=== PATIENT | male | born 1985 | race Caucasian/White ===

== ENCOUNTER 2020-09-19 17:19 | Inpatient (IN) | payer OTHER ==
[2020-09-19] MEDS ORDERED: LORazepam 2 MG/ML INJ IV PRN (17:38)
[2020-09-19] MEDS ORDERED: THIAMINE 100 MG/ML 2 ML VIAL IM STA (17:38)
--- NOTE | 2020-09-19 17:40 | ED ---
General Adult HPI - General Chief complaint: Alcohol Stated complaint: Vomiting, GI Bleed Time Seen by Provider: 09/19/20 17:27 Source: patient, EMS Mode of arrival: EMS Limitations: no limitations - History of Present Illness Initial comments: Dictation was produced using [employer]ren[employer] dictation software. please excuse any grammatical, word or spelling errors. This patient was cared for during a federal and state declared state of emergency secondary to Covid 19 Chief Complaint: 35-year-old male presents with hematemesis and EtOH intoxic ation History of Present Illness: 35-year-old male he called [facility] told him that he wanted to be admitted for alcohol withdrawal rehabilitation. He also mentioned to [facility] staff that he has sometimes episodic hematemesis. Patient states he had a lot of alcohol to drink today. States he feels drunk. He has no other complaints at this time. Patient is limited historian secondary to alcohol intoxication. The ROS documented in this emergency department record has been reviewed and confirmed by me. Those systems with pertinent positive or negative responses have been documented in the HPI. All other systems are other negative and/or noncontributory. PHYSICAL EXAM: General Impression: Alert and oriented x3, not in acute distress, inebriated HEENT: Normocephalic atraumatic, extra-ocular movements intact, pupils equal and reactive to light bilaterally, mucous membranes moist. Cardiovascular: Heart regular rate and rhythm Chest: Able to complete full sentences, no retractions, no tachypnea Abdomen: abdomen soft, non-tender, non-distended, no organomegaly Musculoskeletal: Pulses present and equal in all extremities, no peripheral edema Motor: no focal deficits noted Neurological: CN II-XII grossly intact, no focal motor or sensory deficits noted Skin: Intact with no visualized rashes Psych: Normal affect and mood ED course: 35-year-old male presents with episodic hematemesis and EtOH intoxication. He is interested in alcohol detoxification. Drinks half a gallon of whiskey a day. Vital signs upon arrival shows heart rate of 109, worse vital signs within acceptable limits. Laboratory evaluation obtained. CBC unremarkable. Metabolic panel shows no acute processes. Elevated liver enzymes secondary to mild alcoholic hepatitis. Serum alcohol is 298. Case was discussed with Saira Mas who is willing to accept patients care on behalf of [facility] hospitalist group. Patient will be admitted for acute EtOH intoxication with high likelihood of EtOH withdrawal. Patient is agreeable with disposition plan. As notified me while patient was in the emergency room that he did report suicidal ideation. Does not have a specific plan. Psychiatry be consulted. EKG interpretation: Ventricular rate 103, sinus tachycardia, AK interval 140, QRS 80, QTC 427. No AK prolongation, no QTC prolongation, no ST or T-wave changes noted. Overall, this EKG is unremarkable - Related Data Allergies Allergy/AdvReac Type Severity Reaction Status Date / Time No Known Allergies Allergy Verified 09/19/20 17:36 Review of Systems ROS Statement: Those systems with pertinent positive or pertinent negative responses have been documented in the HPI. ROS Other: All systems not noted in ROS Statement are negative. Past Medical History Past Medical History: No Reported History History of Any Multi-Drug Resistant Organisms: None Reported Past Surgical History: No Surgical Hx Reported Past Psychological History: No Psychological Hx Reported Smoking Status: Current every day smoker Past Alcohol Use History: Abuse, Daily, Heavy Past Drug Use History: Marijuana General Exam Limitations: no limitations Course Vital Signs 09/19/20 17:32 Temperature 98.1 F Pulse Rate 109 H Respiratory 18 Rate Blood Pressure 163/90 O2 Sat by Pulse 97 Oximetry Medical Decision Making - Lab Data Result diagrams: 09/19/20 18:08 09/19/20 18:08 Lab Results 09/19/20 09/19/20 Range/Units 18:08 18:08 WBC 5.2 (3.8-10.6) k/uL RBC 5.23 (4.30-5.90) m/uL Hgb 16.8 (13.0-17.5) gm/dL Hct 49.5 (39.0-53.0) % MCV 94.7 (80.0-100.0) fL MCH 32.2 (25.0-35.0) pg MCHC 34.0 (31.0-37.0) g/dL RDW 16.5 H (11.5-15.5) % Plt Count 209 (150-450) k/uL Neutrophils % 48 % Lymphocytes % 38 % Monocytes % 8 % Eosinophils % 2 % Basophils % 2 % Neutrophils # 2.5 (1.3-7.7) k/uL Lymphocytes # 2.0 (1.0-4.8) k/uL Monocytes # 0.4 (0-1.0) k/uL Eosinophils # 0.1 (0-0.7) k/uL Basophils # 0.1 (0-0.2) k/uL Anisocytosis Slight Sodium 144 (137-145) mmol/L Potassium 4.1 (3.5-5.1) mmol/L Chloride 108 H (98-107) mmol/L Carbon Dioxide 28 (22-30) mmol/L Anion Gap 8 mmol/L BUN 6 L (9-20) mg/dL Creatinine 0.77 (0.66-1.25) mg/dL Est GFR (CKD-EPI)AfAm >90 (>60 ml/min/1.73 sqM) Est GFR (CKD-EPI)NonAf >90 (>60 ml/min/1.73 sqM) Glucose 105 H (74-99) mg/dL Calcium 8.6 (8.4-10.2) mg/dL Magnesium 2.0 (1.6-2.3) mg/dL Total Bilirubin 0.6 (0.2-1.3) mg/dL AST 199 H (17-59) U/L ALT 193 H (4-49) U/L Alkaline Phosphatase 105 (38-126) U/L Total Protein 7.4 (6.3-8.2) g/dL Albumin 4.5 (3.5-5.0) g/dL Serum Alcohol 298 H* mg/dL Disposition Clinical Impression: Alcohol intoxication Disposition: ADMITTED IP TO THIS [facility] Condition: Fair Referrals: None,Stated [Primary Care Provider] - 1-2 days Decision Time: 18:38
[2020-09-19] MEDS ORDERED: NALOXONE 0.4 MG/ML 1 ML VIAL IVP STA ×2 (17:45→19:21)
[2020-09-19] MEDS ORDERED: SODIUM CHLORIDE 0.9% 1,000 ML IV ONE (18:16)
[2020-09-19 18:18] LABS: Anisocytosis Slight; Basophils # (A) 0.1 k/uL (0-0.2); Basophils % (A) 2 %; Eosinophils # (A) 0.1 k/uL (0-0.7); Eosinophils % (A) 2 %; HCT 49.5 % (39.0-53.0); HGB 16.8 gm/dL (13.0-17.5); Lymphocytes % (A) 38 %; MCH 32.2 pg (25.0-35.0); MCV 94.7 fL (80.0-100.0); Mean Platelet Volume 6.5; Monocytes # (A) 0.4 k/uL (0-1.0); Monocytes % (A) 8 %; Neutrophils # (A) 2.5 k/uL (1.3-7.7); Neutrophils % (A) 48 %; Platelet Count 209 k/uL (150-450); RBC 5.23 m/uL (4.30-5.90); RDW 16.5 % (11.5-15.5); WBC 5.2 k/uL (3.8-10.6)
[2020-09-19] MEDS: LORazepam 2 MG/ML INJ IV PRN (18:23)
[2020-09-19 18:28] LABS: ALT 193 U/L (4-49); AST 199 U/L (17-59); African American GFR (CKD) >90 (>60 ml/min/1.73 sqM); Albumin 4.5 g/dL (3.5-5.0); Alkaline Phosphatase 105 U/L (38-126); Anion Gap 8 mmol/L; Blood Urea Nitrogen 6 mg/dL (9-20); Calcium 8.6 mg/dL (8.4-10.2); Carbon Dioxide 28 mmol/L (22-30); Chloride 108 mmol/L (98-107); Glucose 105 mg/dL (74-99); Non-African American GFR(CKD) >90 (>60 ml/min/1.73 sqM); Potassium 4.1 mmol/L (3.5-5.1); Sodium 144 mmol/L (137-145); Total Bilirubin 0.6 mg/dL (0.2-1.3); Total Protein 7.4 g/dL (6.3-8.2)
[2020-09-19 18:32] LABS: Alcohol 298 mg/dL
[2020-09-19] MEDS ORDERED: NALOXONE 0.4 MG/ML 1 ML VIAL IV PRN (18:35)
[2020-09-19] MEDS ORDERED: NALOXONE 0.4 MG/ML 10 ML VIAL IVP STA ×2 (19:06→19:23)
[2020-09-19 19:11] LABS: Glucose,Whole Blood 92 mg/dL (75-99)
[2020-09-19] MEDS: NALOXONE (MDV) 2 MG in SODIUM CHLORIDE 0.9% 250 ML IV SCH ×2 (20:05→22:43)
[2020-09-19 20:45] LABS: Glucose,Whole Blood 92 mg/dL (75-99)
[2020-09-19] MEDS ORDERED: TEMAZEPAM 15 MG CAP PO PRN (21:01)
[2020-09-19] MEDS ORDERED: HYDROcodone/APAP 5-325MG 1 EACH TAB PO PRN (21:01)
[2020-09-19] MEDS: SODIUM CHLORIDE 0.9% 1,000 ML with MVI, ADULT NO.4 WITH VIT K 10 ML, THIAMINE 100 MG, F... IV SCH ×4 (22:46)
--- NOTE | 2020-09-19 23:34 | HP ---
HISTORY AND PHYSICAL DATE OF SERVICE: 09/19/2020 CHIEF COMPLAINTS: Change in mental status, vomiting, GI bleed. HISTORY OF PRESENT ILLNESS: This 35-year-old gentleman with a past medical history of no significant medical issues except smoking, alcohol abuse and THC, being followed by no primary physician in the outpatient setting, was apparently taken to [facility], referred from [facility], because apparently the patient called for alcohol withdrawal rehabilitation because of episodic hematemesis. The patient was directed to [facility] for further evaluation. The patient was initially confused; the patient had a lot of alcohol to drink today, but in the emergency room the patient had more deterioration and change in mental status. Subsequently Narcan infusion was given and the patient was admitted for further evaluation and treatment. Serum alcohol was found to be 298. AST and ALT were also elevated, indicating alcoholic hepatitis. Patient was admitted to ICU Dr. Sim on consult. The patient is currently mumbling, unable to give a coherent history. Most of the history is taken from my discussion with staff and discussion with the ER physician and review of the chart at this time. PAST MEDICAL HISTORY: No significant cardiovascular or respiratory illness. Otherwise, extensive history of substance abuse, as mentioned earlier. MEDICATIONS PRIOR TO ADMISSION: None. ALLERGIES: NONE. Family history, social history, review of systems could not be taken because of the above-mentioned mental status. PHYSICAL EXAMINATION: Pulse is 112, blood pressure 134/85, respiration 14, temperature 98.1, pulse ox 98% on 2 L. HEENT: Conjunctivae normal. Oral mucosa moist. NECK: No jugular venous distention. No carotid bruit. No lymph node enlargement. CARDIOVASCULAR SYSTEM: S1, S2 muffled. RESPIRATORY SYSTEM: Breath sounds diminished at the bases. No rhonchi. No crackles. ABDOMEN: Soft, non-tender. No mass palpable. LEGS: No edema. No swelling. NERVOUS SYSTEM: Higher functions as mentioned earlier. Moves all 4 limbs. No focal motor or sensory deficit. LYMPHATICS: No lymph node palpable in neck, axillae or groin. SKIN: No ulcer, rash, bleeding. JOINTS: No active deforming arthropathy. LABS: Labs at this time show WBC 5.2, hemoglobin 16.8, sodium 140, potassium 4.1. Glucose 105. AST is 119, ALT is 193. Other labs are noted. ASSESSMENT: 1. Change in mental status, acute metabolic encephalopathy, possibly alcohol/drug- induced. 2. Acute alcoholic hepatitis. 3. History of polysubstance abuse. 4. History of nicotine dependence. 5. History of tetrahydrocannabinol. 6. FULL CODE. RECOMMENDATIONS AND DISCUSSION: In this 35-year-old gentleman who presented with multiple complex medical issues, we will monitor the patient closely, continue the current medications, continue with symptomatic treatment. Continue with Narcan. Monitor in ICU closely. Otherwise, WA protocol. Supplement vitamins. Prognosis guarded because of multiple complex medical issues. I would also recommend a CT of the brain to complete the workup. Closely follow with Dr. Sim. Guarded prognosis. Further recommendations to follow. Also recommend psychiatric consultation as well as social work consultation to arrange for outpatient drug/alcohol rehabilitation. Prognosis guarded. Further recommendations to follow. MMZHANNAL / LETYN: [id number] / MTDD
[2020-09-20] MEDS: NALOXONE (MDV) 2 MG in SODIUM CHLORIDE 0.9% 250 ML IV SCH ×8 (01:14→22:49)
[2020-09-20] MEDS: LORazepam 2 MG/ML INJ IV PRN ×6 (01:28→20:05)
[2020-09-20 04:18] LABS: Anisocytosis Slight; Basophils % (A) 1 %; Eosinophils # (A) 0.1 k/uL (0-0.7); Eosinophils % (A) 2 %; HCT 47.3 % (39.0-53.0); HGB 15.6 gm/dL (13.0-17.5); Lymphocytes # (A) 1.9 k/uL (1.0-4.8); Lymphocytes % (A) 30 %; MCH 31.7 pg (25.0-35.0); MCHC 32.9 g/dL (31.0-37.0); MCV 96.4 fL (80.0-100.0); Mean Platelet Volume 6.9; Monocytes # (A) 0.4 k/uL (0-1.0); Monocytes % (A) 6 %; Neutrophils # (A) 3.8 k/uL (1.3-7.7); Neutrophils % (A) 60 %; Platelet Count 176 k/uL (150-450); RBC 4.91 m/uL (4.30-5.90); RDW 16.5 % (11.5-15.5); WBC 6.3 k/uL (3.8-10.6)
[2020-09-20 04:33] LABS: ALT 182 U/L (4-49); AST 211 U/L (17-59); African American GFR (CKD) >90 (>60 ml/min/1.73 sqM); Alkaline Phosphatase 91 U/L (38-126); Anion Gap 5 mmol/L; Blood Urea Nitrogen 4 mg/dL (9-20); Carbon Dioxide 28 mmol/L (22-30); Chloride 105 mmol/L (98-107); Glucose 94 mg/dL (74-99); Non-African American GFR(CKD) >90 (>60 ml/min/1.73 sqM); Potassium 3.6 mmol/L (3.5-5.1); Sodium 138 mmol/L (137-145); Total Bilirubin 0.8 mg/dL (0.2-1.3); Total Protein 6.5 g/dL (6.3-8.2)
[2020-09-20] MEDS ORDERED: Potassium Replacement Protocol 1 EACH MISC MISCELLANE PRN (04:41)
[2020-09-20] MEDS: POTASSIUM CHLORIDE 10 MEQ in WATER FOR INJECTION 1 100ML.BAG IVPB SCH ×2 (05:59→06:00)
[2020-09-20] MEDS: THIAMINE 100 MG TAB PO SCH ×2 (06:46→16:50)
[2020-09-20] MEDS: PANTOPRAZOLE 40 MG/10 ML VIAL IVP SCH (07:56)
[2020-09-20] MEDS: HEPARIN SODIUM,PORCINE 5,000 UNIT/ML 1 ML VIAL SQ SCH ×2 (07:57→22:46)
[2020-09-20] MEDS: NICOTINE 21MG/24HR PATCH TRANSDERM SCH (09:38)
--- NOTE | 2020-09-20 12:27 | P.CNPUL ---
History of Present Illness Consult date: 09/20/20 Requesting physician: Etienne Kemp Reason for consult: other (Critical care management) Chief complaint: Alcohol withdrawal History of present illness: This is a 35-year-old gentleman with no known primary care physician. No known home medications. He has a history of hepatitis C, previous heroin use up until 2 years ago, chronic tobacco dependence, chronic alcohol use drinking approximately half gallon of whiskey per day. He was checking into [facility] yesterday for alcohol withdrawal however during his assessment he had stated he had episodes of hematemesis and had done a lot of drinking and was feeling quite drunk at the time. He was referred here to the e mergency room. Limited history was able to be obtained due to the intoxication. Alcohol level was 298. The patient was difficult to arouse and had pinpoint pupils with these increased respiratory rate and hypoxemia. He was given 2 mg of Narcan with some improvement. He was started on a Narcan infusion and admitted to the intensive care unit for the same. He is seen today in consultation. He is arousable. He is on the CIWA protocol most recently at 17 and did receive Ativan at 8:00 this morning. His Narcan drip has been off since last evening. He has been afebrile. Hemodynamically stable. White count 6.3. Hemoglobin 15.6. Sodium 138. Calcium 3.6. Creatinine 0.75. AST 211. ALT 182. At one point, the patient stated he 'wanted to drink himself to .' flexible babysitter at the bedside. Review of Systems ROS unobtainable: due to mental status Past Medical History Past Medical History: No Reported History Additional Past Medical History / Comment(s): ETOH abuse current ,Heroin abuse 2 years ago, Hep C, History of Any Multi-Drug Resistant Organisms: None Reported Past Surgical History: No Surgical Hx Reported Past Anesthesia/Blood Transfusion Reactions: Unable to Obtain Past Psychological History: No Psychological Hx Reported Smoking Status: Current every day smoker Past Alcohol Use History: Abuse, Daily, Heavy Additional Past Alcohol Use History / Comment(s): Pt. states when he tried to quit drinking 2 months ago he experienced convulsions and hallucinations Past Drug Use History: Heroin, Marijuana Medications and Allergies Home Medications Medication Instructions Recorded Confirmed Type No Known Home Medications 09/19/20 09/19/20 History Allergies Allergy/AdvReac Type Severity Reaction Status Date / Time No Known Allergies Allergy Verified 09/19/20 18:44 Physical Exam Vitals: Vital Signs Temp Pulse Resp BP Pulse Ox 09/20/20 11:00 66 19 144/86 97 09/20/20 10:00 73 29 H 129/93 97 09/20/20 09:00 80 16 134/93 96 09/20/20 08:00 98.2 F 78 19 143/98 95 09/20/20 07:00 89 18 132/87 95 09/20/20 06:00 77 16 139/90 96 09/20/20 05:00 79 22 126/86 96 09/20/20 04:00 98.2 F 98 17 140/91 95 09/20/20 03:00 99 18 143/94 96 09/20/20 02:00 69 14 132/87 93 L 09/20/20 01:14 17 09/20/20 01:00 101 H 17 123/82 97 09/20/20 00:34 92 97 09/20/20 00:00 99 F 100 16 116/78 97 09/19/20 23:00 94 16 117/83 96 09/19/20 22:00 101 H 12 145/96 95 09/19/20 21:00 98.1 F 103 H 13 145/96 95 09/19/20 20:35 98.1 F 112 H 14 134/85 98 09/19/20 20:25 12 09/19/20 20:05 14 09/19/20 19:25 6 L 09/19/20 19:10 112 H 12 134/85 98 09/19/20 19:08 6 L 09/19/20 19:00 112 H 6 L 123/87 09/19/20 17:32 98.1 F 109 H 18 163/90 97 Intake and Output 09/19/20 09/20/20 09/20/20 22:59 06:59 14:59 Intake Total 362.5 845 660 Output Total 550 800 Balance 362.5 295 -140 Intake: IV 105 845 460 Naloxone (Mdv) 2 mg In 75 265 Sodium Chloride 0.9% 250 ml @ 0.6 MG/HR 75 mls/hr IV .Q3H20M [facility] Rx#: [id number] Potassium Chloride 10 meq 100 100 In Water For Injection 1 100ml.bag @ 100 mls/hr IVPB Q1H [facility] Rx#: [id number] Sodium Chloride 0.9% 1, 30 480 360 000 ml @ 60 mls/hr IV . [id number] [facility] with Mvi, Adult No.4 with Vit K 10 ml with Thiamine 100 mg with Folic Acid 1 mg Rx#: [id number] Intake, IV Titration 257.5 Amount Naloxone (Mdv) 2 mg In 197.5 Sodium Chloride 0.9% 250 ml @ 0.6 MG/HR 75 mls/hr IV .Q3H20M [facility] Rx#: [id number] Sodium Chloride 0.9% 1, 60 000 ml @ 60 mls/hr IV . [id number] [facility] with Mvi, Adult No.4 with Vit K 10 ml with Thiamine 100 mg with Folic Acid 1 mg Rx#: [id number] Oral 200 Output: Urine 550 800 Other: Voiding Method Urinal Urinal Weight 83.8 kg 84.9 kg GENERAL EXAM: Arousable, 35-year-old gentleman, on 2 L nasal cannula, com fortable in no apparent distress. HEAD: Normocephalic. EYES: Normal reaction of pupils, equal size. NOSE: Clear with pink turbinates. THROAT: No erythema or exudates. NECK: No masses, no JVD. CHEST: No chest wall deformity. LUNGS: Equal air entry with no crackles, wheeze, rhonchi or dullness. CVS: S1 and S2 normal with no audible murmur, regular rhythm. ABDOMEN: No hepatosplenomegaly, normal bowel sounds, no guarding or rigidity. SPINE: No scoliosis or deformity SKIN: No rashes, multiple tattoos CENTRAL NERVOUS SYSTEM: No focal deficits, tone is normal in all 4 extremities. EXTREMITIES: There is no peripheral edema. No clubbing, no cyanosis. Peripheral pulses are intact. Results - Laboratory Findings CBC and BMP: 09/20/20 04:01 09/20/20 04:01 Abnormal lab findings: Abnormal Labs 09/19/20 09/19/20 09/20/20 18:08 18:08 04:01 RDW 16.5 H 16.5 H Chloride 108 H BUN 6 L Glucose 105 H Calcium AST 199 H ALT 193 H Serum Alcohol 298 H* 09/20/20 04:01 RDW Chloride BUN 4 L Glucose Calcium 8.0 L AST 211 H ALT 182 H Serum Alcohol Assessment and Plan Assessment: 1 Acute alcohol intoxication, level 298 2 Acute hypoxic respiratory failure secondary to above 3 Altered mental status secondary to above 4 History of daily alcohol abuse drinking half gallon of whiskey per day 5 Hepatitis C 6 History of previous heroin use 7 Chronic tobacco dependence Plan: The patient was seen and evaluated by Dr. Sim Obtain a urine drug screen Obtain a chest x-ray Aspiration precautions Continue with IV fluids, MVI NicoDerm patch in place Continue health and safety director Continue CIWA protocol We'll continue to follow and make further recommendations based on his clinical status I, the cosigning physician, performed a history & physical examination of the patient. Lungs sounds are clear. Maintaining good O2 saturations in the 90s on 2 L/m per nasal cannula. I discussed the assessment and plan of care with my nurse practitioner, Marquita Castro. I attest to the above consultation as dictated by her. Time with Patient: Greater than 30
[2020-09-20] MEDS ORDERED: chlordiazePOXIDE 25 MG CAP PO SCH (12:45)
--- NOTE | 2020-09-20 12:46 | P.CN ---
Psychiatric Consult - . Consult date: 09/20/20 Consult:: 09/20/20 12:46 IDENTIFYING DATA: This patient is a 35-year-old male who currently lives with his mother and stepdad in a house has 2 kids is unemployed currently and is single. REASON FOR REFERRAL: Psychiatry was consulted for suicidal ideations HISTORY OF PRESENT ILLNESS: The patient presented to the hospital for alcohol intoxication and hematemesis. Patient apparently was doing a screening call with [facility] over the phone and told him that he had hematemesis however wanted treatment with his alcohol use. He according to her report had been drinking prior to coming in the hospital and reported hematemesis prior to this. He had a blood alcohol level of 298. Patient apparently was mentioning suicidal thoughts in the ER and had elevated liver enzymes. Patient was given 2 mg of Narcan in the ER for respiratory suppression and hypoxia which improved after receiving the medication. Patient wasn't started on a Narcan drip. Patient was the ICU for alcohol withdrawal. Patients nurse claims that patient was initially suicidal and now is more cooperative and calmer however going through alcohol withdrawal. Nurse also claims that patient had recently been looking up with his girlfriend. Patient was evaluated at bedside and claims that "I'm over it" with regarding his alcohol use. He states that he has been drinking himself severely recently and for the past 7-9 months he has been drinking heavy approximately half a gallon of whiskey a day. He claims that this is caused him relationship issues and his girlfriend had broken up with him due to this. He states that he is also having medical problems related to his alcohol use and also claims that he wants to "quit for my kids" and also for himself. He states that he's been coughing up blood the past 2 days and rectal bleeding. He states "I'm killing myself on it" . Patient has desired to go back to [facility] once he is discharged from the hospital. He claims that he does have some irritability and some depression which has been mild. He claims that the depression is mainly from and when he is drinking alcohol. He claims that his sleep has been poor. He claims that he has been hearing whispers/voices since being in the hospital and also claims that he "saw my friends standing there" at the edge of his bed. At this time patient denies any suicidal or homical ideations, intent or plan. Denies any paranoia or delusions. Patients admits to using call as noted above, smokes marijuana occasionally and smokes cigarettes daily. PAST PSYCHIATRIC HISTORY: Patient has a a history of alcohol use. Patient denies being on any psychiatric medications. He claims that he was admitted to a psychiatric hospital [facility] in [place] in the past when he was younger. Patient denies any psychiatric outpatient follow-up. Patient denies any history of suicide attempts in the past. PAST MEDICAL HISTORY: Hypertension. ALLERGIES: as per EMR. CHEMICAL DEPENDENCY HISTORY: as per HPI. FAMILY PSYCHIATRIC/SUBSTANCE USE HISTORY: denies SOCIAL HISTORY: Patient was born and raised in [place] and claims that he completed up to the 12th grade of school and then dropped out. 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 He claims that he was in custodial from [id number] for cocaine possession and burglary.. He claims that he has 2 kids is unemployed and single and lives with his mother and stepdad and house. MENTAL STATUS EXAM: General Appearance: Patient appears to be well built, several tattoos over his body, stated age is alert, pleasant, and cooperative. Patient appears to have fair hygiene and grooming wearing hospital gown with fair eye contact. Behavior: Patient is calmly lying in bed without any agitated behavior. Attempts and cooperate Speech: Patient's speech is fluent and nonpressured. Soft tone of voice Mood/Affect: Patient reports their mood is "depressed", affect is congruent and constricted Suicidality/Homicidality: Patient denies having any suicidal or homicidal ideation intent or plan. Perceptions: Patient denies any visual hallucinations and denies any auditory hallucinations Though content/process: There is no evidence of any delusional thought content and thought process is linear and goal-directed. Memory and concentration: AOX3, grossly intact for the purposes of this session. Can spell "WORLD" backwards Judgment and insight: poor IMPRESSIONS: Depressive disorder unspecified, rule out secondary to substance use Alcohol use disorder, severe, currently in withdrawal Cannabis use disorder, mild Nicotine dependence PLAN: -At this time patient DOES NOT meet criteria for inpatient psychiatric admission however we'll continue to follow patient while he is in the medical floor to see if he will need psychiatric admission or not. -Would recommend the following medication changes/additions: Added Librium standing dose 20 mg 3 times a day or alcohol withdrawal. Continue with CIWA protocol and Ativan when necessary. Patient agreeable to start Lexapro 5 mg daily for mood/anxiety. Started melatonin 6 kg daily at bedtime for insomnia. -Can discontinue 1:1 sitter at this time as patient is not currently an imminent threat to themselves -Navigation Officer spoke with patient about substance abuse and the harmful effects on medical and mental health, patient verbally understood and agreed. -repack room worker to provide patient substance use treatment resources including AA/NA meetings in the community. repack room worker to provide patient with access line number to call for inpatient substance rehab -Communicated plan to patient's nurse -Will continue to follow along while patient is in the hospital. -Please contact with any questions.
[2020-09-20] MEDS: ESCITALOPRAM 5 MG TAB PO SCH (13:28)
[2020-09-20 14:10] LABS: Amphetamine Screen,Urine Not Detected (NotDetected); Barbiturate Screen,Urine Not Detected (NotDetected); Benzodiazepines Screen,Urine Detected (NotDetected); Cocaine Screen,Urine Not Detected (NotDetected); Methadone Screen, Urine Not Detected (NotDetected); Opiate Screen,Urine Not Detected (NotDetected); Oxycodone Screen, Urine Not Detected (NotDetected); Phencyclidine Screen,Urine Not Detected (NotDetected); Tricyclic Antidepressant,Urine Not Detected (NotDetected); Urn Cannabinoid Scrn Detected (NotDetected)
--- NOTE | 2020-09-20 14:19 | XR ---
EXAMINATION TYPE: XR chest 1V portable DATE OF EXAM: 09/20/2020 CLINICAL HISTORY: Hypoxemia, ? aspiration. TECHNIQUE: Portable frontal view of the chest. COMPARISON: None FINDINGS: Lung markings are mildly accentuated due to low lung volumes. The cardiomediastinal silhou ette is within normal limits for size. Pulmonary vasculature is normal. There is a patchy airspace op acity of the left lung base. No pleural effusion, or pneumothorax seen. The osseous structures are in tact. IMPRESSION: Patchy airspace opacity of the left lung base may represent pneumonia.
--- NOTE | 2020-09-20 15:32 | CT ---
EXAMINATION TYPE: CT ChestAbdPelvis wo con DATE OF EXAM: 09/20/2020 COMPARISON: Chest radiograph 09/20/2020 HISTORY: chest and abdominal pain, coughing up blood CT DLP: 795.1 mGycm. Automated Exposure Control for Dose Reduction was Utilized. TECHNIQUE: CT scan of the thorax, abdomen and pelvis is performed without IV contrast. FINDINGS: LUNGS: There is bibasilar atelectasis. No focal airspace opacity No concerning parenchymal mass or no dule identified. There is no pleural effusion or pneumothorax seen. The tracheobronchial tree is p atent. MEDIASTINUM: There are no greater than 1 cm hilar or mediastinal lymph nodes. No pericardial effusi on is seen. Cardiac size normal. OTHER: No additional significant abnormality is seen. LIVER/GB: Diffusely fatty liver. Gallbladder normal. No biliary ductal dilatation. PANCREAS: No peripancreatic stranding. SPLEEN: Not enlarged. ADRENALS: No significant abnormality is seen. KIDNEYS: Several bilateral nonobstructing renal calculi measuring up to 3 mm bilaterally. No hydronep hrosis or hydroureter. BOWEL: No evidence of bowel obstruction or thickening PELVIS: Normal unenhanced appearance. LYMPH NODES: No greater than 1cm abdominal or pelvic lymph nodes are appreciated. OSSEOUS STRUCTURES: No significant abnormality is seen. VASCULAR: No abdominal aortic aneurysm. IMPRESSION: 1. Markedly fatty liver. 2. Bilateral nonobstructing renal calculi. No hydronephrosis. 3. Bibasilar atelectasis of the lungs. No focal airspace opacity.
[2020-09-20] MEDS: SODIUM CHLORIDE 0.9% 1,000 ML with MVI, ADULT NO.4 WITH VIT K 10 ML, THIAMINE 100 MG, F... IV SCH ×4 (19:57)
[2020-09-20] MEDS ORDERED: MELATONIN 3 MG TABLET PO SCH (21:00)
--- NOTE | 2020-09-20 21:12 | PN ---
PROGRESS NOTE DATE OF SERVICE: 09/20/2020. HISTORY: This 35-year-old gentleman was admitted with change in mental status, most likely metabolic encephalopathy and drug induced. The patient was given Narcan drip. Psychiatry has seen the patient. The patient apparently was at the intake of [place] and was complaining of vomitus and some coffee-grounds emesis. The patient also history hepatitis C. The patient is closely monitored. The hemoglobin was rather normal at 15.6 and the BUN is 4. AST ALT was elevated, indicating alcoholic hepatitis. Serum alcohol is 298. PAST MEDICAL HISTORY: Reviewed. REVIEW OF SYSTEMS: CARDIOVASCULAR SYSTEM: No angina. RESPIRATORY: mentioned. GI: As mentioned. : As mentioned. CURRENT MEDICATIONS: Reviewed include Librium, Lexapro, Heparin, Ativan, melatonin, Habitrol 14. PHYSICAL EXAM: Patient is alert, oriented x3 pulse x2. Pulse 74, blood pressure 120/49, respiration 12, temperature normal, pulse ox 98% on room air. HEENT: Conjunctivae normal. NECK: Supple, no JVD. CARDIOVASCULAR: As mentioned. RESPIRATORY: Breath sounds diminished at the bases. Few scattered rhonchi and crackles. ABDOMEN: Soft nontender. LEGS: No edema. SUB PRIOR: No focal deficits. LABS: WBC 6.2, hemoglobin 15.2, sodium 138, potassium 3.6, AST 211 and ALT is 182. ASSESSMENT: 1. Change in mental status acute metabolic encephalopathy possibly alcohol drug induced. 2. History of hematemesis, possible acute gastritis. 3. Acute alcoholic hepatitis. 4. History of polysubstance abuse. 5. History of nicotine dependence. 6. History of THC. 7. Full code. RECOMMENDATIONS: To continue current medical management. The patient also complaining of some hemoptysis. Abdominal pelvis CAT scan were done which showed bilateral obstructing renal calculi. No other abnormalities. Some bilateral atelectasis. I would recommend incentive spirometry. Otherwise, repeat labs in the morning. Once the patient is stable, the patient will be transferred to Psychiatry. Currently the patient is monitored in ICU. Guarded prognosis. Further recommendations to follow. MMODL / IJN: [id number] /
[2020-09-21] MEDS: SODIUM CHLORIDE 0.9% 1,000 ML with MVI, ADULT NO.4 WITH VIT K 10 ML, THIAMINE 100 MG, F... IV SCH ×4 (01:23)
[2020-09-21 04:08] LABS: Basophils # (A) 0.1 k/uL (0-0.2); Basophils % (A) 1 %; Eosinophils # (A) 0.1 k/uL (0-0.7); Eosinophils % (A) 2 %; HCT 50.2 % (39.0-53.0); HGB 16.6 gm/dL (13.0-17.5); Lymphocytes # (A) 1.5 k/uL (1.0-4.8); Lymphocytes % (A) 29 %; MCH 31.3 pg (25.0-35.0); MCHC 33.1 g/dL (31.0-37.0); MCV 94.7 fL (80.0-100.0); Mean Platelet Volume 7.3; Monocytes # (A) 0.5 k/uL (0-1.0); Monocytes % (A) 9 %; Neutrophils % (A) 57 %; Platelet Count 172 k/uL (150-450); RDW 15.8 % (11.5-15.5); WBC 5.3 k/uL (3.8-10.6)
[2020-09-21 04:17] LABS: ALT 159 U/L (4-49); AST 142 U/L (17-59); African American GFR (CKD) >90 (>60 ml/min/1.73 sqM); Alkaline Phosphatase 81 U/L (38-126); Anion Gap 7 mmol/L; Blood Urea Nitrogen 5 mg/dL (9-20); Calcium 9.1 mg/dL (8.4-10.2); Carbon Dioxide 26 mmol/L (22-30); Chloride 104 mmol/L (98-107); Glucose 86 mg/dL (74-99); Non-African American GFR(CKD) >90 (>60 ml/min/1.73 sqM); Potassium 3.7 mmol/L (3.5-5.1); Sodium 137 mmol/L (137-145); Total Bilirubin 1.6 mg/dL (0.2-1.3); Total Protein 6.7 g/dL (6.3-8.2)
[2020-09-21] MEDS ORDERED: POTASSIUM CHLORIDE ER 20 MEQ TAB.ER PO STA (04:40)
[2020-09-21] MEDS: NALOXONE (MDV) 2 MG in SODIUM CHLORIDE 0.9% 250 ML IV SCH ×3 (05:06→07:32)
[2020-09-21] MEDS: THIAMINE 100 MG TAB PO SCH (06:24)
--- NOTE | 2020-09-21 06:49 | XR ---
EXAMINATION TYPE: XR chest 1V DATE OF EXAM: 09/21/2020 CLINICAL HISTORY: Difficulty breathing progress study. TECHNIQUE: Single AP portable semiupright view of the chest is obtained. COMPARISON: Chest x-ray and CT from one day earlier. FINDINGS: There is no new suspicious focal airspace opacity, pleural effusion, or pneumothorax seen bilaterally. Overlying EKG leads are redemonstrated. Cardiac silhouette size stable and within normal limits. Osseous structures are intact. IMPRESSION: No acute process identified. No significant change from prior CT.
[2020-09-21] MEDS: NICOTINE 21MG/24HR PATCH TRANSDERM SCH (08:35)
[2020-09-21] MEDS: HEPARIN SODIUM,PORCINE 5,000 UNIT/ML 1 ML VIAL SQ SCH (08:35)
[2020-09-21] MEDS: PANTOPRAZOLE 40 MG/10 ML VIAL IVP SCH (08:35)
[2020-09-21] MEDS: ESCITALOPRAM 5 MG TAB PO SCH (08:37)
[2020-09-21 09:07] VITALS: BP 129/93; PULSE 55; RESP 24; TEMP 98.7
--- NOTE | 2020-09-21 10:02 | P.PN ---
Subjective Progress Note Date: 09/21/20 Principal diagnosis: Alcohol withdrawal This is a 35-year-old gentleman with no known primary care physician. No known home medications. He has a history of hepatitis C, previous heroin use up until 2 years ago, chronic tobacco dependence, chronic alcohol use drinking approxim ately half gallon of whiskey per day. He was checking into [facility] yesterday for alcohol withdrawal however during his assessment he had stated he had episodes of hematemesis and had done a lot of drinking and was feeling quite drunk at the time. He was referred here to the emergency room. Limited history was able to be obtained due to the intoxication. Alcohol level was 298. The patient was difficult to arouse and had pinpoint pupils with these increased respiratory rate and hypoxemia. He was given 2 mg of Narcan with some improvement. He was started on a Narcan infusion and admitted to the intensive care unit for the same. He is seen today in consultation. He is arousable. He is on the CIWA protocol most recently at 17 and did receive Ativan at 8:00 this morning. His Narcan drip has been off since last evening. He has been afebrile. Hemodynamically stable. White count 6.3. Hemoglobin 15.6. Sodium 138. Calcium 3.6. Creatinine 0.75. AST 211. ALT 182. At one point, the patient stated he 'wanted to drink himself to .' chief development officer at the bedside. The patient is seen today 09/21/2020 in follow-up in the intensive care unit. He is much more awake and alert today. Maintaining O2 saturations in the 90s on room air. He's been afebrile. Hemodynamically stable. Denies any shortness of breath, cough or congestion. No chest pain or palpitations. No tremors. He does have a mild headache which is his main complaint this morning. Otherwise, calm and cooperative. Last dose of Ativan 09/20/2020 at 8 PM. Computed tomography scan of the chest abdomen and pelvis revealed basilar atelectasis of the lungs, bilateral nonobstructing renal calculi without hydronephrosis, markedly fatty liver. Today's chest x-ray reveals no acute process. Urine drug screen was positive for marijuana and benzodiazepines. Habitrol patch in place. He was seen and evaluated by psychiatric services. chief development officer discontinued. Objective - Vital Signs Vital signs: Vital Signs Temp 98.7 F 09/21/20 08:00 Pulse 55 L 09/21/20 08:00 Resp 24 09/21/20 08:00 BP 129/93 09/21/20 09:00 Pulse Ox 94 L 09/21/20 08:00 Intake & Output 09/20/20 09/21/20 09/21/20 18:59 06:59 18:59 Intake Total 1210 700 120 Output Total 2150 1425 550 Balance -940 -725 -430 Weight 83.2 kg Intake: IV 760 600 120 Naloxone (Mdv) 2 mg In 0 0 Sodium Chloride 0.9% 250 ml @ 0.6 MG/HR 75 mls/hr IV .[id number] [facility] Rx#: [id number] Potassium Chloride 10 meq 100 In Water For Injection 1 100ml.bag @ 100 mls/hr IVPB Q1H [facility] Rx#: [id number] Sodium Chloride 0.9% 1, 660 600 120 000 ml @ 60 mls/hr IV . [id number] ALEKS with Mvi, Adult No.4 with Vit K 10 ml with Thiamine 100 mg with Folic Acid 1 mg Rx#: [id number] Oral 450 100 Output: Urine 2150 1425 550 Other: Voiding Method Urinal Urinal - Exam GENERAL EXAM: Arousable, 35-year-old gentleman, on room air, comfortable in no apparent distress. HEAD: Normocephalic. EYES: Normal reaction of pupils, equal size. NOSE: Clear with pink turbinates. THROAT: No erythema or exudates. NECK: No masses, no JVD. CHEST: No chest wall deformity. LUNGS: Equal air entry with no crackles, wheeze, rhonchi or dullness. CVS: S1 and S2 normal with no audible murmur, regular rhythm. ABDOMEN: No hepatosplenomegaly, normal bowel sounds, no guarding or rigidity. SPINE: No scoliosis or deformity SKIN: No rashes, multiple tattoos CENTRAL NERVOUS SYSTEM: No focal deficits, tone is normal in all 4 extremities. EXTREMITIES: There is no peripheral edema. No clubbing, no cyanosis. Peripheral pulses are intact. - Labs CBC & Chem 7: 09/21/20 03:56 09/21/20 03:56 Labs: Abnormal Lab Results - Last 24 Hours (Table) 09/20/20 09/21/20 09/21/20 Range/Units 12:20 03:56 03:56 RDW 15.8 H (11.5-15.5) % BUN 5 L (9-20) mg/dL Creatinine 0.63 L (0.66-1.25) mg/dL Total Bilirubin 1.6 H (0.2-1.3) mg/dL AST 142 H (17-59) U/L ALT 159 H (4-49) U/L U Benzodiazepines Scrn Detected H (NotDetected) U Marijuana (THC) Screen Detected H (NotDetected) Assessment and Plan Assessment: 1 Acute alcohol intoxication, level 298, recovered 2 Acute hypoxic respiratory failure secondary to above, recovered, chest x-ray with no acute pulmonary process 3 Altered mental status secondary to above, improved and back to baseline 4 History of daily alcohol abuse drinking half gallon of whiskey per day 5 Hepatitis C 6 History of previous heroin use 7 Chronic tobacco dependence Plan: The patient was seen and evaluated by Dr. Roney Rodriguez from the pulmonary and critical care standpoint NicoDerm patch in place Continue CIWA protocol Evaluated by psychiatric services chief development officer discontinued Plan is to be admitted to [facility] upon discharge We'll continue to follow and make further recommendations based on his clinical status I, the cosigning physician, performed a history & physical examination of the patient. Lungs sounds are clear. Maintaining good O2 saturations in the 90s on room air. I discussed the assessment and plan of care with my nurse practitioner, Marquita Castro. I attest to the above note as dictated by her.
--- NOTE | 2020-09-21 15:50 | P.DS ---
Providers Date of admission: 09/19/20 18:37 Attending physician: Etienne Kemp Consults: 09/19/20 18:37 Consult Physician Routine Consulting Provider: Davey Johnson Consult Reason/Comments: suicidal ideation Do you want consulting provider notified?: Yes 09/19/20 19:27 Consult Physician Routine Consulting Provider: Kalin Sim Reason/Comments: icu patient, opiate overdose Do you want consulting provider notified?: Already Contacted Primary care physician: Stated None Hospital Course: 35-year-old male was admitted secondary to alcohol intoxication was treated for alcohol withdraws patient last Ativan was yesterday that is the 20 September at 8 PM patient Ativan requirements have gone down, was asked to discharge the patient as patient needed to be discharged as soon as possible so that he can make it to drug rehabilitation or alcohol rehabilitation program. Patient was evaluated by Dr. Kemp yesterday. Patient appears to be medically stable will be discharged to alcohol rehabilitation. PHYSICAL EXAMINATION: GENERAL: The patient is alert and oriented x3, not in any acute distress. Well developed, well nourished. HEENT: Pupils are round and equally reacting to light. EOMI. No scleral icterus. No conjunctival pallor. Normocephalic, atraumatic. No pharyngeal erythema. No thyromegaly. CARDIOVASCULAR: S1 and S2 present. No murmurs, rubs, or gallops. PULMONARY: Chest is clear to auscultation, no wheezing or crackles. ABDOMEN: Soft, nontender, nondistended, normoactive bowel sounds. No palpable organomegaly. MUSCULOSKELETAL: No joint swelling or deformity. EXTREMITIES: No cyanosis, clubbing, or pedal edema. NEUROLOGICAL: Gross neurological examination did not reveal any focal deficits. SKIN: No rashes. For rest of the chronic medical problems has physician course please refer to the progress note from Dr. Kemp from yesterday Patient Condition at Discharge: Fair Plan - Discharge Summary Discharge Rx Participant: No New Discharge Prescriptions: New Escitalopram [Lexapro] 5 mg PO DAILY #30 tab Thiamine [Vitamin B-1] 100 mg PO BID-W/MEALS #30 tab Omeprazole [PriLOSEC] 40 mg PO -[facility] #30 capsule. Discharge Medication List Escitalopram [Lexapro] 5 mg PO DAILY #30 tab 09/21/20 [Rx] Omeprazole [PriLOSEC] 40 mg PO AC-BRKFST #30 capsule. 09/21/20 [Rx] Thiamine [Vitamin B-1] 100 mg PO BID-W/MEALS #30 tab 09/21/20 [Rx] Follow up Appointment(s)/Referral(s): None,Stated [Primary Care Provider] - 1-2 days Patient Instructions/Handouts: Alcohol Withdrawal (DC) Discharge Disposition: OTHER INSTITUTION NOT DEFINED
--- NOTE | 2020-09-23 14:41 | CDI ---
Documentation Clarification Form Date: 09/23/20 From: Emily Lindsey CCS Phone: If you have a question about this query, please contact Ele Perkins, Hand Pattern Marker at [phone] between 8am and 5pm. Admit Date: 09/19/20 Discharge Date:09/21/20 Patient Name: Leif Dawn Visit Number: [id number] ATTENTION: The Clinical Documentation Specialists (CDI) and [facility] Coding Staff appreciate your assistance in clarifying documentation. Please respond to the clarification below the line at the bottom and electronically sign. The CDI & [facility] Coding staff will review the response and follow-up if needed. Please note: Queries are made part of the Legal Health Record. If you have any questions, please contact the author of this message via ITS. Dear Dr. Kemp, Encephalopathy is documented in the H&P, PN. PN 09/20 documents: This 35-year-old gentleman was admitted with change in mental status, most likely metabolic encephalopathy and drug induced. H&P documents: Change in mental status, acute metabolic encephalopathy, possibly alcohol/drug- induced PN 09/21 documents: 1 Acute alcohol intoxication, level 298, recovered 2 Acute hypoxic respiratory failure secondary to above, recovered, chest x-ray with no acute pulmonary process 3 Altered mental status secondary to above, improved and back to baseline History/Risk Factors: Alcoholic intoxication/withdrawal, HTN, Alcoholic hepatitis, BAL 298, Acute respiratory failure Clinical Indicators: Altered mental status, Encephalopathy, Intoxication, Withdrawal Labs: BAL 298 Treatment: Thiamine, Narcan, Ativan, Librium Consults: Roney In your professional opinion, can you please clarify the specific type of Encephalopathy, if known? Metabolic Encephalopathy due to drugs (please specify drug) Encephalopathy due to alcohol intoxication Encephalopathy due to alcohol withdrawal Toxic Encephalopathy due to Other, please specify Unable to determine Metabolic Encephalopathy due to drugs unspecified MTDD
== END 2020-09-21 11:26 | DRG 896 ==
LOC: EC 17:19 → 2SICU 18:37
PROVIDERS: ADMIT Hospitalist; ATTEND Hospitalist
DX: F10.220 Alcohol dependence with intoxication, uncomplicated (principal); J96.01 Acute respiratory failure with hypoxia; G92 Toxic encephalopathy; K92.0 Hematemesis; R45.851 Suicidal ideations; K62.5 Hemorrhage of anus and rectum; F10.230 Alcohol dependence with withdrawal, uncomplicated; K70.10 Alcoholic hepatitis without ascites; K76.0 Fatty (change of) liver, not elsewhere classified; F11.10 Opioid abuse, uncomplicated; R00.0 Tachycardia, unspecified; B19.20 Unspecified viral hepatitis C without hepatic coma; F32.9 Major depressive disorder, single episode, unspecified; F17.210 Nicotine dependence, cigarettes, uncomplicated; I10 Essential (primary) hypertension; N20.0 Calculus of kidney; T50.905A Adverse effect of unspecified drugs, medicaments and biological substances, initial encounter; Y90.8 Blood alcohol level of 240 mg/100 ml or more; Z56.0 Unemployment, unspecified
CPT/HCPCS: 36415; 71045; 71250; 74176; 80053; 80306; 80320; 83735; 85025; 93005; 96361; 96365; 96372; 96375; 96376; 99285